=== PATIENT | female | born 1990 | race Caucasian/White ===

== ENCOUNTER 2018-06-20 01:00 | Emergency (ER) | payer MEDICAID ==
[~2018-06-20] VITALS: Ht 170.2 cm; Wt 74.5 kg
[2018-06-20 01:03] VITALS: BP 111/74
== END 2018-06-20 01:56 | disposition home or self-care (01) ==
LOC: ED 01:50
DX: L03.115 Cellulitis of right lower limb (principal); L03.114 Cellulitis of left upper limb; F11.10 Opioid abuse, uncomplicated; F15.10 Other stimulant abuse, uncomplicated
CPT/HCPCS: 99284

== ENCOUNTER 2018-09-21 23:09 | Inpatient (IN) | payer MEDICAID ==
[~2018-09-21] VITALS: Ht 167.6 cm; Wt 79.0 kg
[2018-09-21] MEDS ORDERED: ACETAMINOPHEN 500 MG TABLET ONE (23:45)
[2018-09-21] MEDS ORDERED: KETOROLAC 30 MG/1 ML ONE (23:45)
[2018-09-22] MEDS ORDERED: ACETAMINOPHEN 500 MG TABLET PO ONE
[2018-09-22] MEDS ORDERED: KETOROLAC 30 MG/1 ML IVPush ONE
[2018-09-22 00:28] LABS: BASOPHILS # (AUTO) 0.05 x10^3/uL (0-0.1); BASOPHILS % (AUTO) 0 % (0-1); EOSINOPHILS # (AUTO) 0.07 x10^3/uL (0-0.4); EOSINOPHILS % (AUTO) 1 % (1-7); LYMPHOCYTES # (AUTO) 2.25 x10^3/uL (1-3.4); LYMPHOCYTES % (AUTO) 16 % (22-44); MD NO; MEAN CORPUSCULAR HEMOGLOBIN 31.1 pg (27.0-34.8); MEAN CORPUSCULAR HGB CONC 33.9 g/dL (32.4-35.8); MEAN CORPUSCULAR VOLUME 91.6 fL (80-100); MEAN PLATELET VOLUME 9.1 fL (7.4-10.4); MONOCYTES # (AUTO) 1.08 x10^3/uL (0.2-0.8); MONOCYTES % (AUTO) 8 % (2-9); NEUTROPHILS # (AUTO) 10.32 x10^3/uL (1.8-6.8); NEUTROPHILS % (AUTO) 75 % (42-75); PLATELET COUNT 282 x10^3/uL (130-400); RED BLOOD COUNT 4.41 x10^6/uL (3.82-5.3); RED CELL DISTRIBUTION WIDTH 13.4 % (9.6-15.2)
[2018-09-22] MEDS ORDERED: AZITHROMYCIN 500 MG in SODIUM CHLORIDE 0.9% 250 ML IV ONE (00:30)
[2018-09-22] MEDS ORDERED: CEFTRIAXONE PMX 1GM/50ML 50 ML IV ONE (00:30)
[2018-09-22] MEDS ORDERED: CEFTRIAXONE PMX 1GM/50ML 50 ML ONE (00:34)
[2018-09-22 00:35] LABS: CULTURE INDICATED? YES; MICROSCOPIC INDICATED
[2018-09-22 00:39] LABS: ALANINE AMINOTRANSFERASE 62 U/L (12-78); ALBUMIN 3.2 g/dL (3.4-5.0); ANION GAP 10 mmol/L (5-15); CALCIUM 8.1 mg/dL (8.5-10.1); CHLORIDE 101 mmol/L (98-107); CREATININE 0.76 mg/dL (0.55-1.02)
[2018-09-22 00:41] LABS: ALKALINE PHOSPHATASE 79 U/L (45-117); BILIRUBIN,TOTAL 0.6 mg/dL (0.2-1.0); TOTAL PROTEIN 8.1 g/dL (6.4-8.2)
[2018-09-22 00:50] LABS: INTERNATIONAL NORMALIZED RATIO 0.93 (0.93-1.1); PROTHROMBIN TIME 9.7 Seconds (9.6-11.5)
[2018-09-22] MEDS ORDERED: BISACODYL 10 MG SUPP PR PRN (01:30)
[2018-09-22] MEDS ORDERED: POLYETHYLENE GLYCOL 17 GM PACKET PO PRN (01:30)
[2018-09-22] MEDS ORDERED: POTASSIUM CHLORIDE 40 MEQ in SODIUM CHLORIDE 0.9% 500 ML IV ONE (01:30)
[2018-09-22] MEDS ORDERED: ONDANSETRON ODT 4 MG PO PRN (01:30)
[2018-09-22] MEDS ORDERED: PROMETHAZINE 25 MG/ML, 1ML IM PRN (01:30)
[2018-09-22] MEDS: HEPARIN 5,000 UNITS/ML, 1ML SQ SCH ×3 (01:30→16:49)
[2018-09-22] MEDS: NICOTINE 7 MG/24 HR PATCH.TD24 TD SCH ×2 (01:30→16:50)
[2018-09-22] MEDS ORDERED: DOCUSATE 100 MG CAPSULE PO PRN (01:30)
[2018-09-22] MEDS ORDERED: ACETAMINOPHEN 325 MG TABLET PO PRN (01:30)
[2018-09-22] MEDS ORDERED: SODIUM CHLORIDE 0.9% 1,000ML IVBOLUS ONE ×2 (01:30)
[2018-09-22] MEDS ORDERED: ONDANSETRON 2MG/ML, 2ML IVPush PRN (01:30)
[2018-09-22] MEDS ORDERED: hydrALAzine 20 MG/ML, 1ML IVPush PRN (01:30)
[2018-09-22] MEDS: CEFTRIAXONE PMX 1GM/50ML 50 ML IV ONE ×2 (01:51→03:33)
[2018-09-22 02:08] LABS: FREE T4 (FREE THYROXINE) 1.88 ng/dL (0.76-1.46); THYROID STIMULATING HORMONE 2.85 mIU/L (0.358-3.740)
[2018-09-22] MEDS: SODIUM CHLORIDE 0.9% 1,000 ML IV SCH ×3 (03:32→16:22)
[2018-09-22] MEDS ORDERED: DOXYCYCLINE 100 MG in DEXTROSE 5% 250 ML IV SCH (08:00)
[2018-09-22 08:01] VITALS: BP 107/71
[2018-09-22 08:27] LABS: RAPID INFLUENZA A Negative (Negative); RAPID INFLUENZA B Negative (Negative)
[2018-09-22] MEDS: KETOROLAC 30 MG/1 ML IV PRN ×2 (09:09→16:22)
[2018-09-22] MEDS: GUAIFENESIN ER 600 MG TABLET PO SCH ×2 (09:09→19:32)
[2018-09-22 13:43] VITALS: BP 107/73
[2018-09-22] MEDS ORDERED: VANCOMYCIN 1,500 MG in SODIUM CHLORIDE 0.9% 250 ML IV SCH (16:00)
[2018-09-22] MEDS ORDERED: VANCOMYCIN PER PHARMACY MC PRN (16:00)
[2018-09-22] MEDS: VANCOMYCIN 1,500 MG in SODIUM CHLORIDE 0.9% 250 ML IV SCH (16:22)
[2018-09-22 19:30] VITALS: BP 102/68
[2018-09-23] MEDS: HEPARIN 5,000 UNITS/ML, 1ML SQ SCH ×3 (00:38→17:20)
[2018-09-23] MEDS: CEFTRIAXONE PMX 2GM/50ML 50 ML IV SCH (00:38)
[2018-09-23] MEDS: KETOROLAC 30 MG/1 ML IV PRN ×2 (00:39→06:36)
[2018-09-23 02:21] VITALS: BP 110/72
[2018-09-23] MEDS: VANCOMYCIN 1,500 MG in SODIUM CHLORIDE 0.9% 250 ML IV SCH ×2 (04:10→17:06)
[2018-09-23 05:34] LABS: ALBUMIN 2.2 g/dL (3.4-5.0); ANION GAP 7 mmol/L (5-15); CHLORIDE 112 mmol/L (98-107)
[2018-09-23 05:38] LABS: ALANINE AMINOTRANSFERASE 42 U/L (12-78); ALKALINE PHOSPHATASE 61 U/L (45-117); BILIRUBIN,TOTAL 0.2 mg/dL (0.2-1.0); CHOL/HDL RATIO 4.5; CHOLESTEROL, TOTAL 94 mg/dL (140-239); CREATININE 0.66 mg/dL (0.55-1.02); HDL CHOL % 22 % (28-40); HDL CHOLESTEROL (DIRECT) 21 mg/dL (40-60); LDL CHOLESTEROL,CALCULATED 54 mg/dL (54-169); LDL/HDL RATIO 2.6 (0.5-3.0); TOTAL PROTEIN 6.4 g/dL (6.4-8.2); TRIGLYCERIDES 96 mg/dL (50-200); VLDL CHOLESTEROL 19 mg/dL (0-25)
[2018-09-23 05:40] LABS: BASOPHILS # (AUTO) 0.04 x10^3/uL (0-0.1); BASOPHILS % (AUTO) 1 % (0-1); EOSINOPHILS # (AUTO) 0.16 x10^3/uL (0-0.4); EOSINOPHILS % (AUTO) 3 % (1-7); LYMPHOCYTES # (AUTO) 1.99 x10^3/uL (1-3.4); LYMPHOCYTES % (AUTO) 30 % (22-44); MD NO; MEAN CORPUSCULAR HGB CONC 33.6 g/dL (32.4-35.8); MEAN CORPUSCULAR VOLUME 92.4 fL (80-100); MEAN PLATELET VOLUME 9.3 fL (7.4-10.4); MONOCYTES % (AUTO) 8 % (2-9); NEUTROPHILS # (AUTO) 3.85 x10^3/uL (1.8-6.8); NEUTROPHILS % (AUTO) 59 % (42-75); PLATELET COUNT 260 x10^3/uL (130-400); RED BLOOD COUNT 3.83 x10^6/uL (3.82-5.3); RED CELL DISTRIBUTION WIDTH 13.7 % (9.6-15.2)
[2018-09-23 08:30] VITALS: BP 109/72
[2018-09-23] MEDS: GUAIFENESIN ER 600 MG TABLET PO SCH ×2 (09:35→21:16)
[2018-09-23] MEDS: OXYcodone/APAP 5/325MG TABLET PO PRN ×3 (09:35→21:28)
[2018-09-23 14:30] VITALS: BP 112/74
[2018-09-23 20:33] VITALS: BP 115/76
[2018-09-24] MEDS: CEFTRIAXONE PMX 2GM/50ML 50 ML IV SCH (01:14)
[2018-09-24] MEDS: HEPARIN 5,000 UNITS/ML, 1ML SQ SCH ×3 (01:14→17:48)
[2018-09-24] MEDS: NICOTINE 7 MG/24 HR PATCH.TD24 TD SCH (01:15)
[2018-09-24] MEDS: OXYcodone/APAP 5/325MG TABLET PO PRN ×2 (01:28→17:48)
[2018-09-24 02:10] VITALS: BP 117/79
[2018-09-24] MEDS: VANCOMYCIN 1,500 MG in SODIUM CHLORIDE 0.9% 250 ML IV SCH ×2 (04:04→15:59)
[2018-09-24 05:11] LABS: HCT (SEDRATE) 31.2 % (34.6-47.8)
[2018-09-24 05:13] LABS: BASOPHILS # (AUTO) 0.04 x10^3/uL (0-0.1); BASOPHILS % (AUTO) 1 % (0-1); EOSINOPHILS # (AUTO) 0.25 x10^3/uL (0-0.4); EOSINOPHILS % (AUTO) 4 % (1-7); LYMPHOCYTES # (AUTO) 2.85 x10^3/uL (1-3.4); LYMPHOCYTES % (AUTO) 42 % (22-44); MD NO; MEAN CORPUSCULAR HEMOGLOBIN 30.8 pg (27.0-34.8); MEAN CORPUSCULAR HGB CONC 33.7 g/dL (32.4-35.8); MEAN CORPUSCULAR VOLUME 91.6 fL (80-100); MEAN PLATELET VOLUME 9.1 fL (7.4-10.4); MONOCYTES # (AUTO) 0.47 x10^3/uL (0.2-0.8); MONOCYTES % (AUTO) 7 % (2-9); NEUTROPHILS # (AUTO) 3.12 x10^3/uL (1.8-6.8); NEUTROPHILS % (AUTO) 46 % (42-75); PLATELET COUNT 299 x10^3/uL (130-400); RED BLOOD COUNT 3.42 x10^6/uL (3.82-5.3)
[2018-09-24 05:23] LABS: ANION GAP 6 mmol/L (5-15); CALCIUM 7.6 mg/dL (8.5-10.1); CHLORIDE 112 mmol/L (98-107)
[2018-09-24 05:35] LABS: ALANINE AMINOTRANSFERASE 40 U/L (12-78); ALKALINE PHOSPHATASE 51 U/L (45-117); BILIRUBIN,TOTAL 0.1 mg/dL (0.2-1.0); CREATININE 0.48 mg/dL (0.55-1.02); TOTAL PROTEIN 5.6 g/dL (6.4-8.2)
[2018-09-24 08:15] VITALS: BP 113/75
[2018-09-24] MEDS: GUAIFENESIN ER 600 MG TABLET PO SCH ×2 (08:22→20:24)
[2018-09-24 14:30] VITALS: BP 118/79
[2018-09-24 20:55] VITALS: BP 109/72
[2018-09-25] MEDS: HEPARIN 5,000 UNITS/ML, 1ML SQ SCH ×3 (01:15→17:40)
[2018-09-25] MEDS: CEFTRIAXONE PMX 2GM/50ML 50 ML IV SCH ×2 (01:15→13:12)
[2018-09-25] MEDS: NICOTINE 7 MG/24 HR PATCH.TD24 TD SCH (01:15)
[2018-09-25 02:58] VITALS: BP 124/81
[2018-09-25] MEDS: VANCOMYCIN 1,500 MG in SODIUM CHLORIDE 0.9% 250 ML IV SCH (04:20)
[2018-09-25 08:30] VITALS: BP 113/73
[2018-09-25] MEDS: OXYcodone/APAP 5/325MG TABLET PO PRN ×3 (08:37→21:59)
[2018-09-25] MEDS: GUAIFENESIN ER 600 MG TABLET PO SCH ×2 (08:37→20:40)
[2018-09-25 14:00] VITALS: BP 125/83
[2018-09-25] MEDS: VANCOMYCIN 1,800 MG in SODIUM CHLORIDE 0.9% 250 ML IV SCH (17:40)
[2018-09-25 20:14] VITALS: BP 112/72
[2018-09-26] MEDS: NICOTINE 7 MG/24 HR PATCH.TD24 TD SCH (01:19)
[2018-09-26] MEDS: CEFTRIAXONE PMX 2GM/50ML 50 ML IV SCH ×2 (01:19→14:50)
[2018-09-26] MEDS: HEPARIN 5,000 UNITS/ML, 1ML SQ SCH ×3 (01:21→17:19)
[2018-09-26 01:22] VITALS: BP 116/76
[2018-09-26 04:55] LABS: MEAN CORPUSCULAR HEMOGLOBIN 30.3 pg (27.0-34.8); MEAN CORPUSCULAR HGB CONC 33.2 g/dL (32.4-35.8); MEAN CORPUSCULAR VOLUME 91.2 fL (80-100); MEAN PLATELET VOLUME 8.3 fL (7.4-10.4); PLATELET COUNT 375 x10^3/uL (130-400); RED BLOOD COUNT 3.93 x10^6/uL (3.82-5.3); RED CELL DISTRIBUTION WIDTH 13.9 % (9.6-15.2)
[2018-09-26 05:01] LABS: ALBUMIN 2.2 g/dL (3.4-5.0); ANION GAP 7 mmol/L (5-15); CHLORIDE 109 mmol/L (98-107)
[2018-09-26] MEDS: VANCOMYCIN 1,800 MG in SODIUM CHLORIDE 0.9% 250 ML IV SCH ×2 (05:01→17:13)
[2018-09-26 05:49] LABS: BASOPHILS # (AUTO) 0.06 x10^3/uL (0-0.1); BASOPHILS % (AUTO) 1 % (0-1); EOSINOPHILS # (AUTO) 0.31 x10^3/uL (0-0.4); EOSINOPHILS % (AUTO) 4 % (1-7); LYMPHOCYTES # (AUTO) 2.82 x10^3/uL (1-3.4); LYMPHOCYTES % (AUTO) 38 % (22-44); MD SCAN; MONOCYTES # (AUTO) 0.48 x10^3/uL (0.2-0.8); MONOCYTES % (AUTO) 6 % (2-9); NEUTROPHILS # (AUTO) 3.83 x10^3/uL (1.8-6.8); NEUTROPHILS % (AUTO) 51 % (42-75)
[2018-09-26 08:00] VITALS: BP 127/84
[2018-09-26] MEDS: GUAIFENESIN ER 600 MG TABLET PO SCH ×2 (10:10→21:21)
[2018-09-26 13:53] VITALS: BP 102/63
[2018-09-26 20:48] VITALS: BP 123/81
[2018-09-27] MEDS: NICOTINE 7 MG/24 HR PATCH.TD24 TD SCH (00:30)
[2018-09-27] MEDS: HEPARIN 5,000 UNITS/ML, 1ML SQ SCH ×2 (00:30→08:26)
[2018-09-27 01:28] VITALS: BP 134/87
[2018-09-27] MEDS: CEFTRIAXONE PMX 2GM/50ML 50 ML IV SCH (02:45)
[2018-09-27] MEDS: VANCOMYCIN 1,800 MG in SODIUM CHLORIDE 0.9% 250 ML IV SCH (05:36)
[2018-09-27 07:36] VITALS: BP 122/78
[2018-09-27] MEDS ORDERED: AMOX1TAB64 PO (07:53)
[2018-09-27] MEDS: GUAIFENESIN ER 600 MG TABLET PO SCH (08:26)
== END 2018-09-27 11:37 | disposition home or self-care (01) | DRG 871 ==
LOC: ED 23:30 → EDIP 09-22 01:11 → 3NW 09-22 02:08 → DCLOUNGE 09-27 11:34
PROVIDERS: ADMIT Internal Medicine; ATTEND Internal Medicine
DX: A40.3 Sepsis due to Streptococcus pneumoniae (principal); J13 Pneumonia due to Streptococcus pneumoniae; E43 Unspecified severe protein-calorie malnutrition; F17.210 Nicotine dependence, cigarettes, uncomplicated; F11.10 Opioid abuse, uncomplicated; N30.90 Cystitis, unspecified without hematuria; E87.6 Hypokalemia; Z90.89 Acquired absence of other organs; Z68.28 Body mass index [BMI] 28.0-28.9, adult
CPT/HCPCS: 36415; 71045; 71046; 80048; 80053; 80061; 80202; 81001; 82040; 83605; 83735; 84100; 84145; 84439; 84443; 85025; 85610; 85651; 85730; 86140; 87040; 87070; 87077; 87086; 87181; 87205; 87400; 93005; 93306; 96361; 96374; 96375; G0378; J0456; J0696; J1644; J1885; J3370; J3480; J7060; J7030; J7040; J7050

== ENCOUNTER 2018-09-28 14:30 | Emergency (ER) | payer MEDICAID ==
[~2018-09-28] VITALS: Ht 167.6 cm; Wt 79.0 kg
[~2018-09-28 14:30] MED LIST: AMOX1TAB64 PO
[2018-09-28 14:53] LABS: MEAN CORPUSCULAR HEMOGLOBIN 30.9 pg (27.0-34.8); MEAN CORPUSCULAR HGB CONC 33.6 g/dL (32.4-35.8); MEAN CORPUSCULAR VOLUME 91.9 fL (80-100); MEAN PLATELET VOLUME 7.6 fL (7.4-10.4); PLATELET COUNT 442 x10^3/uL (130-400); RED BLOOD COUNT 4.51 x10^6/uL (3.82-5.3); RED CELL DISTRIBUTION WIDTH 13.7 % (9.6-15.2)
[2018-09-28 15:03] LABS: ALBUMIN 2.9 g/dL (3.4-5.0); ANION GAP 7 mmol/L (5-15); CALCIUM 8.7 mg/dL (8.5-10.1); CHLORIDE 103 mmol/L (98-107); CREATININE 0.68 mg/dL (0.55-1.02)
[2018-09-28] MEDS ORDERED: DIAZEPAM 5 MG TABLET ONE (15:21)
[2018-09-28] MEDS ORDERED: IBUPROFEN 600 MG TABLET ONE (15:21)
[2018-09-28 15:24] VITALS: BP 112/67
[2018-09-28] MEDS ORDERED: DIAZEPAM 5 MG TABLET PO ONE (15:30)
[2018-09-28] MEDS ORDERED: IBUPROFEN 200 MG TABLET PO ONE (15:30)
[2018-09-28 15:31] LABS: MD YES
[2018-09-28 15:32] LABS: EOS#(MANUAL) 0.15 x10^3/uL (0.0-0.4); EOS% (MANUAL) 1 % (1-7); LYMPH#(MANUAL) 2.22 x10^3/uL (1-3.4); LYMPHS% (MANUAL) 15 % (22-44); MONOS#(MANUAL) 0.44 x10^3/uL (0.3-2.7); MONOS% (MANUAL) 3 % (2-9); MYELOCYTES# (MANUAL) 0.15 x10^3/uL (0-0); MYELOCYTES% (MANUAL) 1 % (0-0); SEG#(MANUAL) 11.84 x10^3/uL (1.8-6.8); SEGS% (MANUAL) 80 % (42-75)
[2018-09-28 15:33] LABS: <PLATELET ESTIMATE> INCREASED; <PLT MORPHOLOGY> NORMAL PLT MORPH; <RBC MORPHOLOGY> NORMAL; TOXIC GRAN 1+
[2018-09-28] MEDS ORDERED: OMNIPAQUE 350 MG/ML, 100ML BOTTLE ONE (16:08)
== END 2018-09-28 16:38 | disposition home or self-care (01) ==
LOC: ED 15:10
DX: M54.6 Pain in thoracic spine (principal); M54.2 Cervicalgia; F17.200 Nicotine dependence, unspecified, uncomplicated
CPT/HCPCS: 36415; 71046; 71275; 80048; 82040; 85025; 99285; Q9967

== ENCOUNTER 2018-12-04 00:59 | Emergency (ER) | payer MEDICAID ==
[~2018-12-04] VITALS: Ht 170.2 cm; Wt 80.9 kg
[2018-12-04 01:02] VITALS: BP 124/84
== END 2018-12-04 02:04 | disposition home or self-care (01) ==
LOC: ED 01:40
DX: M54.2 Cervicalgia (principal); F11.20 Opioid dependence, uncomplicated; F17.210 Nicotine dependence, cigarettes, uncomplicated
CPT/HCPCS: 76536; 99284

== ENCOUNTER 2019-05-21 20:06 | Emergency (ER) | payer MEDICAID ==
[~2019-05-21] VITALS: Ht 167.6 cm; Wt 80.8 kg
[2019-05-21 20:12] VITALS: BP 120/83
[2019-05-21] MEDS ORDERED: LIDOCAINE-MPF 1%, 5ML ONE (20:46)
[2019-05-21] MEDS ORDERED: LIDOCAINE 1%, 10ML INFIL ONE (21:00)
--- NOTE | 2019-05-21 21:10 | NUR ---
I AND D DONE BY
== END 2019-05-21 21:14 | disposition home or self-care (01) ==
LOC: ED 20:50
DX: L02.414 Cutaneous abscess of left upper limb (principal)
CPT/HCPCS: 99283; J3490